=== PATIENT | female | born 1960 | race Caucasian/White ===

== ENCOUNTER 2021-03-17 13:17 | Emergency (ER) | payer OTHER, SELFPAY ==
[2021-03-17 13:27] VITALS: BP 124/73; PULSE 96; RESP 16; TEMP 36.7; O2SAT 100
--- NOTE | 2021-03-17 14:26 | ED.BACK ---
HPI - Back Pain/Injury General Chief Complaint: Back Pain/Injury Stated Complaint: Left side Pain Time Seen by Provider: 03/17/21 14:26 Source: patient and RN notes reviewed Mode of arrival: ambulatory Limitations: no limitations History of Present Illness HPI Narrative: 61-year-old female presents with concern for acute left low back pain and left hip pain. Reports chronic low back pain and hip bursitis. Reports she normally takes tramadol, she is out of tramadol. She reports she is try to get into her orthopedic doctor and has not been able to get an appointment. She denies any abdominal pain, loss of bowel or bladder function. Reports she feels that her left leg is slightly weaker, however that is not uncommon for her chronic problem. Patient reports she has been taking Tylenol and ibuprofen [id number] without relief. MD elicited complaint: back pain Related Data Home Medications Medication Instructions Recorded Confirmed amitriptyline 10 mg PO DAILY 03/17/21 03/17/21 buspirone 5 mg PO DAILY 03/17/21 03/17/21 ezetimibe 10 mg PO DAILY 03/17/21 03/17/21 isosorbide mononitrate 30 mg PO DAILY 03/17/21 03/17/21 levothyroxine 25 mcg PO DAILY 03/17/21 03/17/21 nitroglycerin 1 patch TRANSDERMAL DAILY 03/17/21 03/17/21 ondansetron 4 mg PO DAILY 03/17/21 03/17/21 pantoprazole 40 mg PO DAILY 03/17/21 03/17/21 tramadol 50 mg PO DAILY 03/17/21 03/17/21 zolpidem 5 mg PO DAILY 03/17/21 03/17/21 Allergies Allergy/AdvReac Type Severity Reaction Status Date / Time Sulfa (Sulfonamide Allergy Severe Anaphylaxis Verified 03/17/21 14:06 Antibiotics) levofloxacin Allergy Mild Nausea and Verified 03/17/21 14:06 Vomiting Review of Systems Review of Systems: CONSTITUTIONAL: Denies malaise, chills, sweats, or fever. CARDIOVASCULAR: Denies chest pain, palpitations, or edema. RESPIRATORY: Denies cough or dyspnea. GASTROINTESTINAL: Denies abdominal pain, nausea, vomiting, diarrhea, bloody, or mucous stools. Denies loss of bowel function GENITOURINARY: Denies dysuria or hematuria. Denies loss of bladder function or. SKIN: Denies bruising, redness MUSCULOSKELETAL: Reports left low back pain,, left hip All systems reviewed & are unremarkable except as noted in HPI and below PMFSH Comments At time of signature, agree with nursing past medical, surgical, social and family history. There is no relevant family history pertinent to the presenting complaint Exam Narrative: GENERAL: Well-appearing, well-nourished, and in no acute distress. HEAD: Normocephalic, atraumatic. EYES: PERRLA and EOMI. NECK: Supple. No lymphadenopathy. CHEST: Clear to auscultation. No respiratory distress. HEART: Regular rate and rhythm. Distal pulses palpable and equal, cap refill <3 seconds ABDOMEN: Soft, nontender, no palpable or pulsatile masses. MUSCULOSKELETAL: Normal range of motion and strength in all extremities; 5/5 strength with hip flexion and extension, dorsiflexion and extension, knee flexion and extension, plantar flexion and extension. Normal sensation in dermatomal distributions with sensitivity to light touch and pain. No midline back tenderness to palpation. No paraspinal tenderness. Transfers from lying to sitting to standing. SKIN: Warm, dry, no rash. No ecchymosis, erythema, open wounds to back. NEURO: No focal deficits. Alert and oriented x3. Reflexes intact. Normal gait. PSYCH: Normal mood and affect Course Course Emergency Course: Patient is aware of diagnosis, understands and agrees to treatment plan. Anticipatory guidance given. Patient agrees to follow-up as directed and is aware of reasons to seek care at the emergency department. Portions of this record may have been created with voice recognition software Vital Signs Vital signs: Vital Signs Temperature 98.0 F 03/17/21 13:27 Pulse Rate 96 03/17/21 13:27 Respiratory Rate 16 03/17/21 13:27 Blood Pressure 124/73 03/17/21 13:27 Pulse Oximetry 100 03/17/21 13:27
[2021-03-17] MEDS: KETOROLAC (*BKC) 60 MG/2 ML VIAL IM (14:44)
== END 2021-03-17 14:45 | disposition home or self-care (01) ==
PROVIDERS: Emergency Provider Nurse Practitioner; PCP Internal Medicine
DX: M54.50 Low back pain, unspecified (principal); M25.552 Pain in left hip; I20.9 Angina pectoris, unspecified; E78.00 Pure hypercholesterolemia, unspecified; I10 Essential (primary) hypertension; K21.9 Gastro-esophageal reflux disease without esophagitis; E03.9 Hypothyroidism, unspecified; F41.9 Anxiety disorder, unspecified
CPT/HCPCS: 96372; 99213; G0463; J1885

== ENCOUNTER 2021-07-15 10:20 | Emergency (ER) | payer OTHER, SELFPAY ==
[2021-07-15 10:37] VITALS: BP 128/98; PULSE 92; RESP 16; TEMP 36.4; O2SAT 98
--- NOTE | 2021-07-15 10:51 | ED.GENADULT ---
HPI - General Adult General Stated complaint: left pain Time Seen by Provider: 07/15/21 10:51 Source: patient Mode of arrival: ambulatory Limitations: no limitations History of Present Illness HPI narrative: 61-year-old female presented for complaint of left hip pain. 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 States she is scheduled with biotech production specialist for an injection 07/28/2021. Reports she normally takes tramadol, she is out of tramadol. Patient reports she has been taking Tylenol and ibuprofen [id number] without relief. Rates pain 01/02. She denies any abdominal pain, loss of bowel or bladder function. Denies radiating pain, numbness, tingling or weakness to the extremity. Related Data Home Medications Medication Instructions Recorded Confirmed amitriptyline 10 mg PO DAILY 03/17/21 07/15/21 ezetimibe 10 mg PO DAILY 03/17/21 07/15/21 isosorbide mononitrate 30 mg PO DAILY 03/17/21 03/17/21 nitroglycerin 1 patch TRANSDERMAL DAILY 03/17/21 07/15/21 ondansetron 4 mg PO DAILY 03/17/21 03/17/21 pantoprazole 40 mg PO DAILY 03/17/21 03/17/21 zolpidem 5 mg PO DAILY 03/17/21 07/15/21 Allergies Allergy/AdvReac Type Severity Reaction Status Date / Time Sulfa (Sulfonamide Allergy Severe Anaphylaxis Verified 03/17/21 14:06 Antibiotics) levofloxacin Allergy Mild Nausea and Verified 03/17/21 14:06 Vomiting Review of Systems Review of Systems: CONSTITUTIONAL: Denies body aches, fever, chills EYES: Denies visual changes ENT: Denies rhinorrhea, congestion CARDIOVASCULAR: Denies chest pain, palpitations, or edema. RESPIRATORY: Denies cough or dyspnea. GASTROINTESTINAL: Denies abdominal pain, nausea, vomiting, or diarrhea. SKIN: Denies rash, itching, or wounds. MUSCULOSKELETAL: Left hip pain. NEUROLOGIC: Denies headache, numbness, tingling, or weakness. PSYCH: Denies depression or anxiety. All systems reviewed & are unremarkable except as noted in HPI and below PMFSH Comments At time of signature, I have reviewed and agree with nursing past medical, surgical, social and family history unless otherwise noted. Please see nursing chart for further information. There is no relevant family history pertinent to the presenting complaint Exam Narrative: GENERAL: Well-appearing, well-nourished, and in no acute distress. HEAD: Normocephalic, atraumatic. EYES: PERRLA, conjunctivae clear NECK: Supple. CHEST: Speaks in full sentences. No respiratory distress. HEART: Regular rate and rhythm. Normal and equal peripheral pulses. EXTREMITIES: Left leg has normal strength and sensation, limited range of motion with flexion/extension/rotation at hip endorses pain with movement. No edema or ecchymosis, point tenderness to distal left hip No open wounds, skin tenting, or obvious deformity; alignment normal, pulse palpable and equal bilaterally, skin warm, dry, pink. Ambulates without assistive device. Capillary refill less than 3 seconds. SKIN: Warm, dry, no rash. NEURO: Alert and oriented x3. PSYCH: Normal mood and affect Course Course Emergency Course: Patient is aware of diagnosis, understands and agrees to treatment plan. Anticipatory guidance given. Patient agrees to follow-up as directed and is aware of reasons to seek care at the emergency department. Portions of this record may have been created with voice recognition software Level of Care: Express Care Visit Vital Signs Vital signs: Vital Signs Temperature 97.5 F L 07/15/21 10:37 Pulse Rate 92 07/15/21 10:37 Respiratory Rate 16 07/15/21 10:37 Blood Pressure 128/98 H 07/15/21 10:37 Pulse Oximetry 98 07/15/21 10:37 Temperature 97.5 F L 07/15/21 10:37 Pulse Rate 92 07/15/21 10:37 Respiratory Rate 16 07/15/21 10:37 Blood Pressure 128/98 H 07/15/21 10:37 Pulse Oximetry 98 07/15/21 10:37 Reviewed Medical Decision Making MDM Narrative Medical decision making narrative:
[2021-07-15] MEDS: KETOROLAC (*BKC) 60 MG/2 ML VIAL IM (11:13)
== END 2021-07-15 11:39 | disposition home or self-care (01) ==
PROVIDERS: Emergency Provider Nurse Practitioner Family; PCP Internal Medicine
DX: M25.552 Pain in left hip (principal); E78.00 Pure hypercholesterolemia, unspecified; I10 Essential (primary) hypertension; K21.9 Gastro-esophageal reflux disease without esophagitis; E03.9 Hypothyroidism, unspecified; I20.9 Angina pectoris, unspecified
CPT/HCPCS: 96372; 99213; G0463; J1885

== ENCOUNTER 2021-11-02 15:17 | Emergency (ER) | payer OTHER, SELFPAY ==
[2021-11-02] VITALS (15 sets, daily range): BP systolic 127–155; BP diastolic 79–88; PULSE 68–111; RESP 10–21; TEMP 36.6; O2SAT 98–99
--- NOTE | ~2021-11-02 | CT_ITS ---
EXAMINATION: CT BRAIN W/O DATE: 11/02/2021 17:57 INDICATION: Headache and low-grade fever TECHNIQUE: Computed tomography (CT) of the head was performed without intravenous contrast. The dose- length product was 605.33 mGy-cm. COMPARISON: No prior studies for comparison. FINDINGS: Normal brain parenchymal volume for age. Normal art-white differentiation. No acute intrac ranial hemorrhage, infarction, mass or mass effect. No ventriculomegaly or midline shift. Midline sagittal images demonstrate a normal corpus callosum, c raniovertebral junction and sella turcica. Basilar cisterns are patent. Paranasal sinuses and mastoids are pneumatized. No depressed skull fractures. IMPRESSION: 1. No acute intracranial abnormality. Reviewed, dictated and finalized at location A.
[2021-11-02] MEDS: SODIUM CHLORIDE 0.9% IV 1,000 ML 999 ML IV CONT (16:06)
--- NOTE | 2021-11-02 16:06 | ED.HA ---
HPI - Headache General Chief Complaint: Headache <MARCELINO Salazar Last Filed: 11/02/21 18:57> Stated Complaint: AMADOR,FEVER,N/V <MARCELINO Salazar Last Filed: 11/02/21 18:57> Time Seen by Provider: 11/02/21 15:39 <MARCELINO Salazar Last Filed: 11/02/21 18:57> Source: patient <MARCELINO Salazar Last Filed: 11/02/21 18:57> Mode of arrival: ambulatory <MARCELINO Salazar Last Filed: 11/02/21 18:57> Limitations: no limitations <MARCELINO Salazar Last Filed: 11/02/21 18:57> History of Present Illness HPI Narrative: Patient is a 61-year-old female who presents the ED with report of a headache. Patient reports having a diffuse frontal headache for the past 3 days. She states the pain feels centered around her nose, forehead, sinuses. She has been taking naproxen and Aleve at home without relief. She also completed a Z-James, prescribed by her PCP for sinusitis. Patient has a remote history of migraines 6 years ago. States current headache does not feel similar however. She reports having nausea, vomiting last night, and a recent mild cough. Denies any fever, chills, dizziness, lightheadedness, vision changes, photophobia, phonophobia, chest pain, difficulty breathing, current congestion or rhinorrhea. <MARCELINO Salazar Last Filed: 11/02/21 18:57> Related Data Home Medications: Home Medications Medication Instructions Recorded Confirmed amitriptyline 10 mg tablet 10 mg PO DAILY 03/17/21 07/15/21 ezetimibe 10 mg tablet 10 mg PO DAILY 03/17/21 07/15/21 isosorbide mononitrate 30 mg 30 mg PO DAILY 03/17/21 07/15/21 tablet,extended release 24 hr nitroglycerin 0.1 mg/hr 1 patch transdermal DAILY 03/17/21 07/15/21 transdermal 24 hour patch pantoprazole 40 mg tablet,delayed 40 mg PO DAILY 03/17/21 07/15/21 release zolpidem 5 mg tablet 5 mg PO DAILY 03/17/21 07/15/21 baclofen 20 mg tablet 20 mg DIRECTED 07/15/21 07/15/21 <Evelyne Banegas PA-C - Last Filed: 11/02/21 18:57> Allergies/Adverse Reactions: Allergies Allergy/AdvReac Type Severity Reaction Status Date / Time Sulfa (Sulfonamide Allergy Severe Anaphylaxis Verified 11/02/21 15:29 Antibiotics) levofloxacin Allergy Mild Nausea and Verified 11/02/21 15:29 Vomiting <Evelyne Banegas PA-C - Last Filed: 11/02/21 18:57> Review of Systems Review of Systems: CONSTITUTIONAL: Denies fever, chills, or sweats. EYES: Denies visual changes. ENT: Denies rhinorrhea, congestion. CARDIOVASCULAR: Denies chest pain. RESPIRATORY: Reports cough. Denies dyspnea. GASTROINTESTINAL: Reports N/V. MUSCULOSKELETAL: Denies myalgia. NEUROLOGIC: Reports AMADOR. Denies HI, dizziness, lightheadedness, numbness, or focal weakness. PSYCHIATRIC: Denies anxiety or depression. <Evelyne Banegas PA-C - Last Filed: 11/02/21 18:57> All systems reviewed & are unremarkable except as noted in HPI and below <Evelyne Banegas PA-C - Last Filed: 11/02/21 18:57> [facility] Past Medical History Medical History: Medical History (Updated 11/03/21 @ 00:00 by Nj Grace) Anxiety Depression GERD (gastroesophageal reflux disease) Hypercholesterolemia <Evelyne Banegas PA-C - Last Filed: 11/02/21 18:57> Surgical History Surgical History: Surgical History (Updated 11/02/21 @ 18:44 by Evelyne Banegas PA-C) No pertinent past surgical history <Evelyne Banegas PA-C - Last Filed: 11/02/21 18:57> Social History Social History: Social History (Updated 11/02/21 @ 18:44 by Evelyne Banegas PA-C) Smoking status: Never smoker <Evelyne Banegas PA-C - Last Filed: 11/02/21 18:57> Exam Narrative: GENERAL: Well appearing, well-nourished, non-toxic, in no acute distress. HEAD: Normocephalic, atraumatic. EYES: PERRL/EOMI, conjunctivae clear bilaterally. NOSE: Normal, no drainage. THROAT: Pharynx clear, no exudate. MMs moist. No dental fractures or signs of abscess. NECK: Supple. No adenopathy, no junie
[2021-11-02] MEDS: METOCLOPRAMIDE HCL INJ 10 MG/2 ML VIAL IV PUSH (16:07)
[2021-11-02] MEDS: KETOROLAC 30 MG/ML VIAL (*BKC) IV PUSH (16:08)
[2021-11-02] MEDS: diphenhydrAMINE HCl INJ 50 MG/ML VIAL 25 MG IV PUSH (16:09)
[2021-11-02 16:33] LABS: Basophils Percent Auto 0.4 % (0.2-1.2); Eosinophils Absolute Auto 0.1 K/mm3 (0-0.3); Eosinophils Percent Auto 1.4 % (0-4.4); Hematocrit 40.1 % (37.0-47.0); Hemoglobin 13.5 g/dL (12.0-15.0); Immature Granulocyte Absolute 0.02 K/mm3 (0.00-0.031); Immature Granulocyte Percent A 0.2 % (0-0.5); Lymphocytes Absolute Auto 3.03 K/mm3 (0.9-3.2); Lymphocytes Percent Auto 32.1 % (18.3-44.2); Mean Corpuscular HGB Conc 33.7 g/dl (32-36); Mean Corpuscular Hemoglobin 31.1 pg (26-34); Mean Corpuscular Volume 92.4 fl (80-100); Mean Platelet Volume 9.8 fl (7.4-10.4); Monocytes Absolute Auto 0.7 K/mm3 (0.1-0.6); Monocytes Percent Auto 7.3 % (2.6-8.5); Neutrophils Absolute Auto 5.5 K/mm3 (1.3-6.7); Neutrophils Percent Auto 58.6 % (45.5-73.1); Platelet Count Result 361 k/mm3 (150-375); Red Blood Count 4.34 M/mm3 (4.2-5.4); Red Cell Distribution Width 13.2 % (11.5-14.5); White Blood Count 9.5 K/mm3 (4.5-10.0)
[2021-11-02 16:51] LABS: Alanine Aminotransferase 21 U/L (6-35); Albumin Level 4.4 g/dL (3.5-5.1); Alkaline Phosphatase 85 U/L (38-126); Anion Gap 11 mmol/L (8-16); Aspartate Amino Transferase 24 U/L (14-36); Bilirubin,Total 0.4 mg/dL (0.2-1.3); Blood Urea Nitrogen 15 mg/dL (7-17); Calcium 9.2 mg/dL (8.4-10.2); Carbon Dioxide 23 mmol/L (22-30); Chloride 103 mmol/L (98-107); Estimated CRCL calculation 54 ml/min; Estimated Glomerular Filt Rate > 60; Glucose 94 mg/dL (65-110); Potassium 3.3 mmol/L (3.4-5.0); Sodium 137 mmol/L (137-145)
[2021-11-02 17:13] LABS: SARS-CoV-2 RNA PCR Negative
--- NOTE | 2021-11-02 18:18 | PC.NURSE ---
Refuses blood pressures because it gets too tight.
[2021-11-02] MEDS: POTASSIUM CHLORIDE 20 MEQ TABLET 40 MEQ PO (18:48)
== END 2021-11-02 19:11 | disposition home or self-care (01) ==
PROVIDERS: Physician Assistant; Emergency Provider Emergency Medicine; PCP Internal Medicine
DX: R51.9 Headache, unspecified (principal); Z20.822 Contact with and (suspected) exposure to COVID-19; K21.9 Gastro-esophageal reflux disease without esophagitis; E78.00 Pure hypercholesterolemia, unspecified; F41.9 Anxiety disorder, unspecified; F32.A Depression, unspecified
CPT/HCPCS: 36415; 70450; 80053; 85025; 96365; 96375; 99284; A9270; C9803; J0131; J1200; J1885; J2765; J7030; U0003; U0005

== ENCOUNTER 2022-12-15 10:01 | Emergency (ER) | payer OTHER, SELFPAY ==
--- NOTE | 2022-12-15 10:07 | ED.GENADULT ---
HPI - General Adult General Chief complaint: Eye Problems Stated complaint: Eyes Irritation/Right Arm Pain Time Seen by Provider: 12/15/22 10:32 Source: patient and RN notes reviewed Mode of arrival: ambulatory Limitations: no limitations History of Present Illness HPI narrative: 62-year-old female presents with concern for 2 complaints. She reports she has been having bilateral eye irritation, redness, drainage. She denies vision changes in a 2nd complaint she reports pain in her right upper arm were she has a nodule that she has seen Plastic surgery for and is scheduled to have it removed. Reports her pain is keeping her awake at night. She reports she has been taking Tylenol ibuprofen without relief. MD complaint: Eye irritation Related Data Home Medications Medication Instructions Recorded Confirmed amitriptyline 10 mg tablet 10 mg PO DAILY 03/17/21 07/15/21 nitroglycerin 0.1 mg/hr 1 patch transdermal DAILY 03/17/21 07/15/21 transdermal 24 hour patch baclofen 20 mg tablet 20 mg DIRECTED 07/15/21 07/15/21 eszopiclone 2 mg tablet mg 12/15/22 Allergies Allergy/AdvReac Type Severity Reaction Status Date / Time Sulfa (Sulfonamide Allergy Severe Anaphylaxis Verified 12/15/22 10:14 Antibiotics) levofloxacin Allergy Mild Nausea and Verified 12/15/22 10:14 Vomiting Review of Systems Review of Systems: CONSTITUTIONAL: Denies malaise, chills, sweats, or fever. EYES: Denies visual changes. Reports bilateral redness, irritation, discharge. ENT: Denies rhinorrhea, congestion, sinus pain, otalgia or sore throat. SKIN: Denies rash or itching. MUSC: Reports right arm pain. Denies decreased strength, sensation, range of motion in the extremity NEUROLOGIC: Denies numbness, weakness, or headache. PSYCHIATRIC: Denies anxiety or depression. All systems reviewed & are unremarkable except as noted in HPI and below PMFSH Past Medical History Medical History (Updated 12/15/22 @ 10:42 by Chelle Fish NP) Anxiety Depression GERD (gastroesophageal reflux disease) Hypercholesterolemia Surgical History Surgical History (Updated 11/02/21 @ 18:44 by Evelyne Dennis PA-C) No pertinent past surgical history Social History Social History (Updated 11/02/21 @ 18:44 by Evelyne Dennis PA-C) Smoking status: Never smoker Comments At time of signature, agree with nursing past medical, surgical, social and family history. There is no relevant family history pertinent to the presenting complaint Exam Narrative: GENERAL: Well-appearing, well-nourished, and in no acute distress. HEAD: Normocephalic, atraumatic. EYES: PERRLA, sclera clear, and EOMI. No nystagmus. Bilateral conjunctivae and sclera injected. Upper and lower eyelid unremarkable, no periorbital edema noted ENT: Nares clear, turbinates pink, no rhinorrhea or epistaxis. Mucous membranes moist. TM pearly art with sharp light reflex bilaterally; no tragal tenderness. NECK: Supple. CHEST: No respiratory distress. Speaks in full sentences. HEART: Regular rate and rhythm. SKIN: Warm, dry, no visible rash. EXT: Tenderness on the lateral right upper arm without erythema, edema, warmth noted NEURO: Alert and oriented x3. PSYCH: Normal mood and affect Course Course Emergency Course: Patient is aware of diagnosis, understands and agrees to treatment plan. Anticipatory guidance given. Patient agrees to follow-up as directed and is aware of reasons to seek care at the emergency department. Portions of this record may have been created with voice recognition software Level of Care: Express Care Visit Vital Signs Vital signs: Reviewed. Medical Decision Making MDM Narrative Medical decision making narrative: Exam findings show no acute concerns or changes; patient is non-toxic appearing and is in no distress. Patient is appropriate for outpatient treatment and follow-up. Critical Care Time Critical Care Time Critical Care Oswaldo
[2022-12-15 10:13] VITALS: BP 98/60; PULSE 99; RESP 16; TEMP 36.8; O2SAT 100
[2022-12-15 10:16] VITALS: BP 98/60; PULSE 99; RESP 16; TEMP 36.8; O2SAT 100
== END 2022-12-15 10:53 | disposition home or self-care (01) ==
PROVIDERS: Emergency Provider Nurse Practitioner; PCP Internal Medicine
DX: H10.9 Unspecified conjunctivitis (principal); M79.621 Pain in right upper arm; F32.A Depression, unspecified; K21.9 Gastro-esophageal reflux disease without esophagitis; E78.00 Pure hypercholesterolemia, unspecified
CPT/HCPCS: 99213; G0463

== ENCOUNTER → 2024-04-21 11:48 | Emergency (ER) | payer OTHER, SELFPAY ==
[2024-04-21 11:56] VITALS: BP 108/69; PULSE 109; RESP 169; TEMP 36.7; O2SAT 98
== END | disposition left against medical advice (07) ==
PROVIDERS: PCP Internal Medicine
DX: Z53.21 Procedure and treatment not carried out due to patient leaving prior to being seen by health care provider (principal)
CPT/HCPCS: 99199